=== PATIENT | female | born 1990 | race African-American/Black ===

== ENCOUNTER 2021-09-09 07:16 | Emergency (ER) | payer OTHER ==
[~2021-09-09 07:16] MED LIST: MIRALAX17 GM PO; PROBIOTIC1 EAC3 PO
[2021-09-09] MEDS ORDERED: PROTONIX 40MG T40 MG PO (08:08)
[2021-09-09] MEDS ORDERED: MAALOX ADVANCE355 ML PO (08:08)
[2021-09-09] MEDS ORDERED: CARAFATE S500 MG/TSP PO (08:08)
[2021-09-09] MEDS ORDERED: BACITRACIN15 GM TOP (08:08)
[2021-09-09] MEDS ORDERED: ATARAX25 MG PO (08:08)
== END 2021-09-09 08:25 | disposition home or self-care (01) ==
LOC: FER 07:16
DX: K21.9 Gastro-esophageal reflux disease without esophagitis (principal); T14.8XXA Other injury of unspecified body region, initial encounter; F17.210 Nicotine dependence, cigarettes, uncomplicated; W57.XXXA Bitten or stung by nonvenomous insect and other nonvenomous arthropods, initial encounter
CPT/HCPCS: 99283